=== PATIENT | male | born 1995 | race Caucasian/White ===

== ENCOUNTER 2021-10-06 10:44 | Emergency (ER) | payer MEDICAID ==
[~2021-10-06] VITALS: Ht 162.6 cm; Wt 100.0 kg
[2021-10-06] MEDS ORDERED: TETRACAINE 0.5% OPHTH DROPS 4ML LEFTEYE ONE (12:00)
[2021-10-06] MEDS ORDERED: SODIUM CHLORIDE 0.9% 1,000 ML IV ONE (12:45)
[2021-10-06] MEDS ORDERED: DEXT15DR5 EACHEYE (13:56)
[2021-10-06 14:27] VITALS: BP 137/74
== END 2021-10-06 14:30 | disposition home or self-care (01) ==
LOC: ER 10:44
DX: T26.42XA Burn of left eye and adnexa, part unspecified, initial encounter (principal); I49.9 Cardiac arrhythmia, unspecified; X08.8XXA Exposure to other specified smoke, fire and flames, initial encounter; Y93.89 Activity, other specified; Y92.89 Other specified places as the place of occurrence of the external cause; Y99.8 Other external cause status
CPT/HCPCS: 93005; 99283; J7030; J7040; Z7610